=== PATIENT | male | born 1945 | race Caucasian/White ===

== ENCOUNTER → 2017-03-17 | Outpatient (CLI) | payer OTHER ==
[~2017-03-17] MED LIST: AMLO10TA2 PO; FISH100020 PO; PERC7.5T13 PO; VALS160T6 PO
[2017-03-17 10:24] LABS: AUTOMATED NEUTROPHIL # 4.9 TH/MM3 (1.8-7.7); BASOPHIL % 0.4 % (0.0-2.0); EOSINOPHIL # 0.2 TH/MM3 (0-0.4); HEMATOCRIT 39.7 % (39.0-51.0); HEMOGLOBIN 13.3 GM/DL (13.0-17.0); LYMPH % 24.9 % (9.0-44.0); LYMPHOCYTE # 1.9 TH/MM3 (1.0-4.8); MEAN CELL VOLUME 86.1 FL (80.0-100.0); MEAN CORPUSCULAR HEMOGLOBIN 28.8 PG (27.0-34.0); MEAN CORPUSCULAR HGB CONC 33.5 % (32.0-36.0); MEAN PLATELET VOLUME 8.6 FL (7.0-11.0); MONO % 8.9 % (0.0-8.0); MONOCYTE # 0.7 TH/MM3 (0-0.9); NEUT % 63.8 % (16.0-70.0); PLATELET COUNT 268 TH/MM3 (150-450); RED BLOOD COUNT 4.61 MIL/MM3 (4.50-5.90); RED CELL DISTRIBUTION WIDTH 15.7 % (11.6-17.2); WHITE BLOOD COUNT 7.6 TH/MM3 (4.0-11.0)
[2017-03-17 10:27] LABS: PROTHROMBIN TIME - PATIENT 11.2 SEC (9.8-11.6)
[2017-03-17 10:46] LABS: ALBUMIN 3.4 GM/DL (3.4-5.0); ALT (GPT) 30 U/L (12-78); AST (GOT) 15 U/L (15-37); BICARBONATE 29.9 MEQ/L (21.0-32.0); BLOOD UREA NITROGEN 31 MG/DL (7-18); CALCIUM 9.6 MG/DL (8.5-10.1); CHLORIDE 102 MEQ/L (98-107); CREATININE 1.32 MG/DL (0.60-1.30); GLOMERULAR FILTRATION RATE 53 ML/MIN (>89); GLUCOSE,FASTING 102 MG/DL (74-99); SODIUM (NA) 137 MEQ/L (136-145)
[2017-03-17 10:48] LABS: ALKALINE PHOSPHATASE 85 U/L (45-117); TOTAL BILIRUBIN ADULT 0.4 MG/DL (0.2-1.0); TOTAL PROTEIN 8.6 GM/DL (6.4-8.2)
--- NOTE | 2017-03-18 17:52 | EKG ---
Date Performed: 03/17/2017 Time Performed: 09:48:53 PTAGE: 71 years EKG: Sinus rhythm NONSPECIFIC T-WAVE ABNORMALITY BORDERLINE ECG NO PREVIOUS TRACING DOCTOR: Karla Ramirez Interpretating Date/Time 03/18/2017 17:48:20
== END ==
LOC: CPRE 09:28
PROVIDERS: ATTEND Podiatrist Primary Podiatric Medicine
DX: Z01.810 Encounter for preprocedural cardiovascular examination (principal); Z01.812 Encounter for preprocedural laboratory examination; M86.9 Osteomyelitis, unspecified; R94.31 Abnormal electrocardiogram [ECG] [EKG]
CPT/HCPCS: 36415; 80053; 85025; 85610; 93005

== ENCOUNTER → 2017-03-21 | Day surgery (SDC) | payer OTHER ==
[~2017-03-21] VITALS: Ht 175.3 cm; Wt 84.5 kg
[~2017-03-21] MED LIST changes: +ACETAMINOPHEN 1000 MG/100 ML 100 ML IV ONE; +BUPIVACAINE HCL PF 0.5% 30 ML VIAL ONE; +CHLORHEXIDINE GLUCONATE 2 % 1 PACK (2 CLOTHS) TOPICAL PRN; +DEXAMETHASONE SOD PHOS 4 MG/ML VIAL IV ONE; +IBUPROFEN 400 MG TAB PO PRN; +INSULIN HUMAN REGULAR 1,000 UNITS/10 ML VIAL SQ PRN; +LACTATED RINGER'S 1000 ML IV PRN; +LIDOCAINE HCL 1% 50 ML VIAL ONE; +LIDOCAINE HCL 1% PF 5 ML SYRINGE OTHER ONE; +METOPROLOL TARTRATE 25 MG TAB PO PRN; +MIDAZOLAM HCL 2 MG/2 ML VIAL IV ONE; +NALOXONE HCL 0.4 MG/ML AMP IV PUSH PRN; +PHENYLEPH/NS 1000 MCG/10 ML SYR IV ONE; +POVIDONE IODINE 5% (ANTISEPSIS KIT) 4 APPLICATIONS EACH NARE PRN; +PROPOFOL 200 MG/20 ML AMP IV ONE; +Post-op Orders (for Pharmacy) MISC XX ONE; +SODIUM CHLORID 0.9% 500 ML IV PRN; +SODIUM CHLORIDE 0.9% FLUSH 10 ML FLUSH IV FLUSH PRN; +SODIUM CHLORIDE 0.9% FLUSH 10 ML FLUSH IV FLUSH SCH; +ceFAZolin 2 GM PREMIX 50 ML IV SCH
--- NOTE | 2017-03-21 09:51 | PD.OP ---
Operative Report Date of Surgery: Mar 21, 2017 Preoperative Diagnosis: (1) Osteomyelitis of toe of right foot Third toe right foot Postoperative Diagnosis: (1) Osteomyelitis of toe of right foot Third toe right foot Procedure: Partial amputation of third toe right foot Anesthesia: Mac with local Surgeon: Roderick Ruvalcaba DPM [employer] Resources Hr Generalist(s): None Operation and Findings: Patient is brought to the operating room placed on the operating table in a supine position. A pneumatic ankle cuff was placed around the patient's right ankle after adequate web roll padding. Patient was given sedation anesthesia and the third toe the right foot was anesthetized with 10 cc of 0.5% Marcaine plain. The right foot was prepped and draped in the usual sterile manner. After the appropriate timeout was performed the right foot was elevated above the operating table for a period of 3 minutes at which time the pneumatic ankle cuff was inflated to 250 mmHg. The right foot was lowered to the operating table and attention was directed to the third toe the right foot which was noted to have an ulceration at the distal interphalangeal joint consistent with osteomyelitis. At this time a [place] incisions were made dorsal and plantar at the proximal interphalangeal joint level. The incisions were deepened using sharp and blunt dissection and using a bone-cutting forceps the toe was disarticulated just that proximal to the head of the proximal phalanx. The toe was sent for culture and sensitivity and pathology. The area was remodeled to remove any remaining bone of the proximal phalanx so that good closure could be achieved. There is flushed with copious amounts of sterile saline. Subcutaneous tissue is reapproximated and closed with 3-0 Vicryl. Skin incisions were reapproximated closed with 4-0 nylon. The incision was dressed with Adaptic 4 x 4's and Fabio. The pneumatic ankle cuff was deflated at the 13 minute [place] endovascular status returned to the remaining toes of the right foot. Sponge and instrument counts were noted to be correct. Estimated blood loss was less than 5 cc. The toe was sent to pathology. Patient are the procedures and anesthesia well and left the OR to same-day surgery in apparent satisfactory condition with all vital signs stable endovascular status intact to the remaining digits of the right foot. Roderick Ruvalcaba DPM Mar 21, 2017 09:51
[2017-03-21 10:43] VITALS: BP 116/65; PULSE 69; RESP 18; TEMP 97.6; O2SAT 100
--- NOTE | 2017-03-21 11:20 | RADRPT ---
EXAM DATE/TIME: 03/21/2017 10:48 [facility] COMPARISON: No previous studies available for comparison. INDICATIONS : Post op right foot surgery on third toe. MEDICAL HISTORY : None. SURGICAL HISTORY : None. ENCOUNTER: Initial ACUITY: 1 day PAIN SCORE: 0/10 LOCATION: Right Foot. FINDINGS: Status post resection third toe. Anatomic alignment CONCLUSION: Resection third toe otherwise negative. Edenilson Benoit MD FACR on March 21, 2017 at 11:16 Board Certified Radiologist. This report was verified electronically.
== END | disposition home or self-care (01) ==
LOC: HSDC 06:19
PROVIDERS: ATTEND Podiatrist Primary Podiatric Medicine
DX: M86.9 Osteomyelitis, unspecified (principal); M1A.9XX1 Chronic gout, unspecified, with tophus (tophi); I10 Essential (primary) hypertension
CPT/HCPCS: 01470; 28825; 73630; 88305; 88311; J0131; J0690; J1100; J2250; J2370; J3010; J7120; L3260